=== PATIENT | male | born 1980 | race Caucasian/White ===

== ENCOUNTER 2022-09-25 08:20 | Day surgery (SDC) | payer OTHER ==
[~2022-09-25 08:20] MED LIST: Lidocaine 1%/Sod Bicarbonate in NS 8.4% 1 ML Syringe IDERM PRN; Sodium Chloride 0.9% 10 ML Syringe FLUSH PRN; Sodium Chloride 0.9% 10 ML Syringe FLUSH SCH
[2022-09-25] MEDS: Lactated Ringers 1,000 ML IV SCH ×2 (08:40→12:49)
[2022-09-25] MEDS ORDERED: Bupivacaine 0.5%/EPINEPHrine 1:200,000 50 ML MDV ONE (09:21)
[2022-09-25] MEDS ORDERED: Lidocaine 1% 50 ML MDV ONE (09:21)
[2022-09-25] MEDS ORDERED: Metoclopramide 10 MG/2 ML SDV ONE (09:26)
[2022-09-25] MEDS ORDERED: Lidocaine 1% 6 ML ONE (09:26)
[2022-09-25] MEDS ORDERED: Midazolam 1 MG/ML 2 ML SDV ONE (09:26)
[2022-09-25] MEDS ORDERED: fentaNYL 100 MCG/2 ML SDV ONE (09:26)
[2022-09-25] MEDS ORDERED: Ondansetron 4 MG/2 ML SDV ONE (09:26)
[2022-09-25] MEDS ORDERED: Propofol 200 MG/20 ML SDV ONE (09:27)
[2022-09-25] MEDS ORDERED: Succinylcholine 200 MG/10 ML MDV ONE (09:27)
[2022-09-25] MEDS ORDERED: ceFAZolin 2 GM Vial ONE (09:39)
[2022-09-25] MEDS ORDERED: Lactated Ringers 1,000 ML ONE (10:41)
[2022-09-25] MEDS ORDERED: Rocuronium 50 MG/5 ML Vial ONE (10:43)
[2022-09-25] MEDS ORDERED: HYDROmorphone 0.5 MG/0.5 ML Syringe IVPUSH PRN (11:05)
[2022-09-25] MEDS ORDERED: fentaNYL 100 MCG/2 ML SDV IVPUSH PRN (11:05)
[2022-09-25] MEDS ORDERED: HYDROmorphone 0.5 MG/0.5 ML Syringe ONE (11:53)
[2022-09-25] MEDS ORDERED: Ketorolac 30 MG/ML SDV ONE (11:58)
[2022-09-25] MEDS ORDERED: oxyCODONE 5 MG Tab PO SCH (13:28)
[2022-09-25 13:57] VITALS: BP 134/73; PULSE 75
== END 2022-09-25 14:00 | disposition home or self-care (01) ==
LOC: JD.SDS 08:20
PROVIDERS: ATTEND Surgery
DX: K40.90 Unilateral inguinal hernia, without obstruction or gangrene, not specified as recurrent (principal); K21.9 Gastro-esophageal reflux disease without esophagitis; I10 Essential (primary) hypertension; Z79.899 Other long term (current) drug therapy; Z98.890 Other specified postprocedural states
CPT/HCPCS: 49650; A9270; C1727; C1781; J0330; J0690; J1170; J1885; J2001; J2250; J2405; J2704; J2765; J3010; J3490; J7120